=== PATIENT | female | born 1995 | race African-American/Black ===

== ENCOUNTER 2016-05-13 16:43 | Emergency (ER) | payer BC, OTHER ==
[~2016-05-13] VITALS: Ht 167.6 cm; Wt 57.2 kg
[~2016-05-13 16:43] MED LIST: MACROBID100 MG ORAL; TYLENOL325 MG ORAL; ZOFRAN ODT4 MG ORAL
[2016-05-13 17:11] VITALS: BP 122/62
[2016-05-13] MEDS ORDERED: Acetaminophen 500mg (ES) tab ORAL ONE (17:30)
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
[2016-05-13] MEDS ORDERED: TYLENOL EXTRA500 MG ORAL (18:28)
[2016-05-13 18:51] VITALS: BP 118/60
--- NOTE | 2016-05-14 10:16 | Diagnostic Imaging Report ---
Indications: Head trauma, pain Technique: Continuous helical CT imaging of the brain was performed with automatic exposure control on a Siemens sensation [address] scanner. Axial and coronal images were reconstructed at 5 mm slice thickness and interval. CTDI volume(s): 70 mGy Total DLP: 1428 mGy-cm Findings: Comparison: None. Intracranial anatomy is unremarkable. No evidence of mass or hemorrhage, other attenuation abnormality, mass effect, midline shift, hydrocephalus or increased intracranial pressure. Bone window images are unremarkable. Visualized paranasal sinuses and mastoid air cells are clear. IMPRESSION: Negative noncontrast CT scan of the brain --no evidence of acute injury. Written preliminary report placed in PACS 05/13/[address] scanner at [facility] is accredited by the [employer] and the scans are performed using protocols designed to limit radiation exposure to as low as reasonably achievable to attain images of sufficient resolution adequate for diagnostic evaluation.
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
== END 2016-05-13 18:51 | disposition home or self-care (01) ==
LOC: EMR 17:32
DX: S00.33XA Contusion of nose, initial encounter (principal); S00.83XA Contusion of other part of head, initial encounter; S00.03XA Contusion of scalp, initial encounter; S00.81XA Abrasion of other part of head, initial encounter; Y04.2XXA Assault by strike against or bumped into by another person, initial encounter; Y92.89 Other specified places as the place of occurrence of the external cause; J45.909 Unspecified asthma, uncomplicated
CPT/HCPCS: 70450; 70486; 99284

== ENCOUNTER 2017-10-10 21:53 | Emergency (ER) | payer BC, OTHER ==
[~2017-10-10] VITALS: Ht 170.2 cm; Wt 61.2 kg
[~2017-10-10 21:53] MED LIST changes: +TYLENOL EXTRA500 MG ORAL
[2017-10-10 22:15] VITALS: BP 118/52
[2017-10-10] MEDS ORDERED: Dexamethasone 4mg/ml vial IM ONE (22:30)
[2017-10-10] MEDS ORDERED: AMOXICILLIN500 MG ORAL (22:46)
[2017-10-10] MEDS ORDERED: TYLENOL EXTRA500 MG ORAL (22:46)
[2017-10-10 22:50] VITALS: BP 118/52
--- NOTE | 2017-10-11 03:09 | Emergency Room Report ---
History of Present Illness General Chief Complaint: Sore Throat Source: Patient Present Illness HPI 22-year-old female presents ED complaining of sore throat. Started 2 days ago. Dull, 8 out of 10, nonradiating. States it is difficult to swallow. Denies fevers or chills. Denies cough or congestion. Denies earache. Denies sick contacts or recent travel. No other aggravating relieving factors. Denies any other associated symptoms Allergies: Uncoded Allergies: pears, bananas (Allergy, Severe, Rash, 05/25/14) Patient History Past Medical History: asthma Past Surgical History: none Pertinent Family History: none Social History: Denies: smoking, alcohol use, drug use Last Menstrual Period: September Now: No Immunizations: UTD Reviewed Nursing Documentation: PMH: Agreed; PSxH: Agreed Nursing Documentation-PMH Hx Asthma: Yes Review of Systems All Other Systems: negative except mentioned in HPI Physical Exam Vital Signs Date Time Temp Pulse Resp B/P (MAP) Pulse Ox O2 Delivery O2 Flow Rate FiO2 10/10/17 21:55 98.2 70 16 112/47 97 Room Air 98.2 Sp02 EP Interpretation: reviewed, normal General Appearance: no apparent distress, alert, GCS 15, non-toxic Head: normocephalic Eyes: bilateral eye normal inspection, bilateral eye PERRL ENT: hearing grossly normal, no angioedema, normal voice, TMs + canals normal, pharyngeal erythema Neck: full range of motion, supple/symm/no masses Respiratory: normal inspection Cardiovascular #1: normal inspection Gastrointestinal: normal inspection Rectal: deferred Genitourinary: no CVA tenderness Musculoskeletal: normal inspection Neurologic: alert, oriented x3, responsive, motor strength/tone normal, sensory intact, speech normal Psychiatric: normal inspection Skin: normal inspection Lymphatic: adenopathy Medical Decision Making Diagnostic Impression: Primary Impression: Pharyngitis Qualified Codes: J02.9 - Acute pharyngitis, unspecified ER Course Hospital Course 22-year-old female presents to ED complaining of sore throat Differential diagnoses include: URI, pharyngitis, otitis media Clinical course Patient placed on stretcher. After initial history, physical exam reveals a young female in no acute distress. Bilateral TM unremarkable. There is pharyngeal erythema w/o tonsillar exudates. + lymphadenopathy. Clinical findings consistent with pharyngitis. Discussed findings with patient. Given Decadron here. Discharge on antibiotics. Close follow-up with PMD Diagnosis - pharyngitis Stable and discharged home with prescriptions for tylenol, amoxicillin. Instructed to followup with PMD. return to ED if symptoms recur or worsen Last Vital Signs Date Time Temp Pulse Resp B/P (MAP) Pulse Ox O2 Delivery O2 Flow Rate FiO2 10/10/17 22:50 98.2 68 16 118/52 99 Room Air 98.2 Status: improved Disposition: HOME, SELF-CARE Condition: Stable Scripts Acetaminophen* (TYLENOL EXTRA STRENGTH*) 500 Mg Tablet 500 MG ORAL Q8H PRN for Prn Headache/Temp > 101, #30 TAB 0 Refills Prov: Rakesh Toro MD 10/10/17 Amoxicillin* (AMOXIL*) 500 Mg Capsule 500 MG ORAL THREE TIMES A DAY, #21 CAP Prov: Rakesh Toro MD 10/10/17 Referrals: [facility],REFERRING (PCP) Patient Instructions: Pharyngitis, [id number] Rakesh Toro MD Oct 11, 2017 03:09
== END 2017-10-10 22:50 | disposition home or self-care (01) ==
LOC: EMR 22:15
DX: J02.9 Acute pharyngitis, unspecified (principal); J45.909 Unspecified asthma, uncomplicated
CPT/HCPCS: 96372; 99284; J1100

== ENCOUNTER → 2019-08-07 | Emergency (ER) | payer OTHER ==
[~2019-08-07] VITALS: Ht 170.2 cm; Wt 59.0 kg
[~2019-08-07] MED LIST changes: +AMOXICILLIN500 MG ORAL
[2019-08-07 14:33] VITALS: BP 115/70
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
--- NOTE | 2019-08-07 15:30 | NUR ---
ED Nurse Note: Ultrasound at bedside. 20 g IV started in left AC, blood drawn and sent to lab along with urine specimen.
[2019-08-07 15:44] LABS: APPEARANCE,URINE CLEAR; BILIRUBIN, URINE NEGATIVE (NEGATIVE); COLOR,URINE PALE YELLOW; GLUCOSE, URINE (UA) NEGATIVE (NEGATIVE); KETONES,URINE NEGATIVE (NEGATIVE); LEUKOCYTE ESTERASE ,URINE NEGATIVE (NEGATIVE); NITRITE,URINE NEGATIVE (NEGATIVE); PH,URINE 6.5 (4.5-8.0); PROTEIN,URINE NEGATIVE (NEGATIVE); UROBILINOGEN,URINE NORMAL MG/DL (0.0-1.0)
[2019-08-07 15:47] LABS: BASOPHILS % (AUTO) 0.8 % (0.0-2.0); EOSINOPHILS % (AUTO) 2.2 % (0.0-3.0); HEMATOCRIT 40.8 % (37.0-47.0); HEMOGLOBIN 13.4 G/DL (12.0-16.0); LYMPHOCYTES % (AUTO) 29.4 % (20.0-45.0); MEAN CORPUSCULAR VOLUME 84 FL (80-99); MONOCYTES % (AUTO) 6.8 % (1.0-10.0); NEUTROPHILS % (AUTO) 60.8 % (45.0-75.0); PLATELET COUNT 254 K/UL (150-450); RED BLOOD COUNT 4.87 M/UL (4.20-5.40); RED CELL DISTRIBUTION WIDTH 11.3 % (11.6-14.8); WHITE BLOOD COUNT 8.1 K/UL (4.8-10.8)
[2019-08-07 15:56] LABS: ANION GAP 9 mmol/L (5-15); BLOOD UREA NITROGEN 10 mg/dL (7-18); CALCIUM 9.3 MG/DL (8.5-10.1); CARBON DIOXIDE 26 MMOL/L (21-32); CHLORIDE 101 MMOL/L (98-107); CREATININE 0.7 MG/DL (0.55-1.30); POTASSIUM 3.9 MMOL/L (3.5-5.1); SODIUM 136 MMOL/L (136-145)
[2019-08-07 16:00] LABS: ALANINE AMINOTRANSFERASE 22 U/L (12-78); ALBUMIN 3.8 G/DL (3.4-5.0); ALBUMIN/GLOBULIN RATIO 1.1 (1.0-2.7); ALKALINE PHOSPHATASE 41 U/L (46-116); ASPARTATE AMINO TRANSFERASE 14 U/L (15-37); BILIRUBIN,TOTAL 0.3 MG/DL (0.2-1.0)
--- NOTE | 2019-08-07 17:09 | Diagnostic Imaging Report ---
Indication: Pelvic pain and vaginal bleeding Technique: Transabdominal and transvaginal images the pelvis. Doppler interrogation of the ovaries. Comparison: none Findings: Uterus measures 10.2 cm length by 5.6 cm AP. Within the endometrium, there is a gestational sac. This contains a yolk sac. It also demonstrates a pole with a crown-rump length of 6 mm. This corresponds to an estimated gestational age of 6 weeks 3 days. There is positive heart activity, heart rate 157 bpm. No subchorionic hemorrhage noted. The left ovary measures 3.7 cm in length. The right ovary measures 2.6 cm in length. No adnexal mass is demonstrated. There is a small amount of free pelvic fluid Impression: 6 week 3 day, by crown-rump length measurement, single live intrauterine . No unusual features Free cul-de-sac fluid, presumably physiologic
== END | disposition home or self-care (01) ==
LOC: EMR 15:06
DX: O26.851 Spotting complicating pregnancy, first trimester (principal); Z3A.01 Less than 8 weeks gestation of pregnancy; Z91.018 Allergy to other foods
CPT/HCPCS: 36415; 76801; 76817; 80053; 81003; 83690; 84702; 85025; 86850; 86900; 86901; J7040; Z7502; 99284